=== PATIENT | male | born 1950 | race African-American/Black ===

== ENCOUNTER 2017-10-25 06:25 | Emergency (ER) | payer MEDICAID ==
[~2017-10-25] VITALS: Ht 185.4 cm; Wt 85.0 kg
[2017-10-25 06:26] VITALS: BP 146/87
== END 2017-10-25 08:57 | disposition left against medical advice (07) ==
LOC: ER 06:25
DX: R10.13 Epigastric pain (principal); Z53.21 Procedure and treatment not carried out due to patient leaving prior to being seen by health care provider